=== PATIENT | female | born 1995 ===

== ENCOUNTER → 2018-08-24 21:16 | Outpatient (ROUT) | payer OTHER, SELFPAY ==
[2018-08-24 22:22] LABS: Add Manual Diff / Slide Review NO; Basophils Absolute Auto 0 /uL (0-100); Basophils Percent Auto 0.3 % (0-2); Eosinophils Absolute Auto 400 /uL (0-450); Eosinophils Percent Auto 4.1 % (2-4); Hematocrit 39.8 % (36-46); Hemoglobin 12.8 g/dL (12.0-16.0); Lymphocytes Absolute Auto 2700 /uL (1100-4500); Lymphocytes Percent Auto 29.7 % (25-40); Mean Corpuscular HGB Conc 32.1 % (30-36); Mean Corpuscular Hemoglobin 26.3 PG (26-34); Mean Corpuscular Volume 82.1 fL (80-100); Monocytes Absolute Auto 600 /uL (0-900); Monocytes Percent Auto 6.5 % (3-14); Neutrophils Absolute Auto 5400 /uL (1500-7000); Neutrophils Percent Auto 59.4 % (50-75); Platelet Count 423 X10^3/uL (150-400); Red Blood Cell Count 4.85 X10^6/uL (4.0-5.2); Red Cell Distribution Width 15.3 % (11.6-14.8); White Blood Cell Count 9.1 X10^3/uL (4.5-11.0)
[2018-08-24 22:39] LABS: Hemoglobin A1C% w Est Avg Glu 5.6 % (4.0-6.0)
[2018-08-24 23:02] LABS: Alanine Aminotransferase 28 IU/L (9-52); Albumin 4.4 g/dL (3.5-5.0); Albumin Globulin Ratio 1.3 (1.0-2.8); Alkaline Phosphatase 64 U/L (38-126); Aspartate Aminotransferase 20 IU/L (14-36); BUN Creatinine Ratio 14.3 (6-22); Bilirubin Total 0.4 mg/dL (0.2-1.3); Blood Urea Nitrogen 10 mg/dL (7-17); Calcium 9.7 mg/dL (8.4-10.2); Carbon Dioxide 26 mmol/L (22-32); Chloride 106 mmol/L (98-107); Estimated Glomerular Filt Rate > 60.0 mL/min (>60); Globulin 3.3 g/dL (1.7-4.1); Glucose 109 mg/dL (70-100); HEMOLYSIS < 15 (0-50); Potassium 4.6 mmol/L (3.4-5.1); Sodium 143 mmol/L (137-145); Total Protein 7.7 g/dL (6.3-8.2)
[2018-08-24 23:17] LABS: HCG Quantitative /Beta subunit < 2.39 mIU/mL
[2018-08-24 23:19] LABS: Free T3, Triiodothyronine Free 4.08 pg/mL (2.77-5.27); Free T4, Direct Thyroxine 0.86 ng/dL (0.78-2.19)
[2018-08-24 23:33] LABS: Thyroid Stimulating Hormone 1.43 uIU/mL (0.47-4.68)
[2018-08-24 23:36] LABS: Ferritin 15.3 ng/mL (6.27-137)
[2018-08-25 10:19] LABS: Progesterone, Total 6.92 ng/mL
[2018-08-27 15:21] LABS: Thyroxine Binding Globulin 27.5 mcg/mL (13.5-30.9)
[2018-08-27 16:06] LABS: Anti Thyroglobulin Antibody < 1 IU/mL (< 2); Thyroid Peroxidase Antibodies < 1 IU/mL (< 9)
[2018-08-27 20:53] LABS: Estrogen 371.3 pg/mL
[2018-08-31 07:55] LABS: Testosterone, Total 28.4; Triiodothyronine T3 Reverse 11.5
[2018-08-31 07:56] LABS: Testosterone,Free 2.6
== END ==
PROVIDERS: Visit Provider Physician Assistant
DX: R53.83 Other fatigue (principal); R63.5 Abnormal weight gain; N92.6 Irregular menstruation, unspecified; L03.115 Cellulitis of right lower limb
CPT/HCPCS: 36415; 80053; 82672; 82728; 83036; 84144; 84402; 84403; 84439; 84443; 84481; 84482; 84702; 85025; 86376; 86800